=== PATIENT | female | born 1960 | race Caucasian/White ===

== ENCOUNTER 2019-09-05 07:54 | Outpatient (CLI) | payer BC ==
[~2019-09-05 07:54] MED LIST: REGADENOSON 0.4 MG/5 ML SYRINGE ONE
== END 2019-09-05 23:59 | disposition home or self-care (01) ==
LOC: CFH 07:54
PROVIDERS: ATTEND Internal Medicine Cardiovascular Disease
DX: I25.10 Atherosclerotic heart disease of native coronary artery without angina pectoris (principal)
CPT/HCPCS: 78452; 93017; A9502; J2785

== ENCOUNTER → 2020-08-03 | Outpatient (CLI) | payer BC | END | disposition home or self-care (01) | LOC: EDSEX 10:38 → CFH 10:38 | PROVIDERS: ATTEND Registered Nurse | DX: J92.9 Pleural plaque without asbestos (principal); J98.4 Other disorders of lung; M51.34 Other intervertebral disc degeneration, thoracic region; I25.10 Atherosclerotic heart disease of native coronary artery without angina pectoris; M51.44 Schmorl's nodes, thoracic region; M95.4 Acquired deformity of chest and rib; Z86.11 Personal history of tuberculosis | CPT/HCPCS: 71250 ==